=== PATIENT | female | born 1935 | race Caucasian/White ===

== ENCOUNTER 2016-08-07 08:52 | Emergency (ER) | payer MEDICARE, OTHER ==
[2016-08-07 10:07] LABS: BILIRUBIN NEGATIVE (NEGATIVE); BLOOD NEGATIVE Ery/uL (NEGATIVE); CLARITY CLEAR (CLEAR); COLOR YELLOW (YELLOW); GLUCOSE (U) NORMAL (NORMAL); KETONE (U) NEGATIVE (NEGATIVE); LEUKOCYTES NEGATIVE Leu/uL (NEGATIVE); NITRITE NEGATIVE (NEGATIVE); PROTEIN 1+ mg/dL (NEGATIVE); UROBILINOGEN 0.2 mg/dL (0.2-1.0); pH 8.5 (5.0-9.0)
[2016-08-07 10:08] LABS: BASOPHIL 0.4 % (0-2); EOSINOPHIL 2.6 % (0-7); HCT 37.1 % (37.0-47.0); HGB 11.9 g/dl (12.5-16.0); LYMPHOCYTE 16.3 % (15-48); MCH 27.8 pg (25.0-31.0); MCHC 32.1 g/dL (32.0-36.0); MCV 86.7 fL (78.0-100.0); MONOCYTE 6.8 % (0-12); MPV 10.9 fL (6.0-9.5); NEUTROPHIL 73.9 % (41-80); PLT 248 K/uL (150-400); RBC 4.28 M/uL (4.20-5.40); RDW 16.2 % (11.5-14.0); WBC 7.6 K/uL (4.0-10.5)
[2016-08-07 10:12] LABS: ALBUMIN 4.2 g/dL (3.4-4.8); BILIRUBIN - TOTAL 0.4 mg/dL (0.1-1.0); CREATININE 0.8 mg/dL (0.5-1.0); GLOBULIN (CALCULATION) 2.2 g/dL (2.2-4.2); POTASSIUM 3.8 mmol/L (3.5-5.1); TOTAL PROTEIN 6.4 g/dL (6.4-8.3)
[2016-08-07 10:20] LABS: AMORPHOUS URATES CRYSTALS TRACE; BACTERIA TRACE; URINARY RBC RARE
== END 2016-08-07 11:54 | disposition home or self-care (01) ==
LOC: FER 08:52
PROVIDERS: Emergency Medicine
DX: N20.0 Calculus of kidney (principal); E11.9 Type 2 diabetes mellitus without complications; I10 Essential (primary) hypertension; J45.909 Unspecified asthma, uncomplicated; F17.210 Nicotine dependence, cigarettes, uncomplicated; Z87.19 Personal history of other diseases of the digestive system; Z99.81 Dependence on supplemental oxygen
CPT/HCPCS: 36415; 80053; 81001; 82150; 83690; 85025; J1170; J2270

== ENCOUNTER 2016-08-08 09:01 | Emergency (ER) | payer MEDICARE ==
[2016-08-08 10:07] LABS: BASOPHIL 0.4 % (0-2); EOSINOPHIL 0.7 % (0-7); HCT 35.8 % (37.0-47.0); HGB 11.6 g/dl (12.5-16.0); LYMPHOCYTE 13.7 % (15-48); MCHC 32.4 g/dL (32.0-36.0); MCV 86.5 fL (78.0-100.0); MONOCYTE 5.7 % (0-12); MPV 10.6 fL (6.0-9.5); NEUTROPHIL 79.5 % (41-80); PLT 228 K/uL (150-400); RBC 4.14 M/uL (4.20-5.40); RDW 15.9 % (11.5-14.0); WBC 9.6 K/uL (4.0-10.5)
[2016-08-08 10:21] LABS: INR 1.06 (0.9-1.2); PROTHROMBIN TIME 13.4 SECONDS (11.7-14.0); PTT 24.1 SECONDS (23.2-31.4)
[2016-08-08 10:23] LABS: BILIRUBIN NEGATIVE (NEGATIVE); BLOOD NEGATIVE Ery/uL (NEGATIVE); COLOR YELLOW (YELLOW); GLUCOSE (U) NORMAL (NORMAL); KETONE (U) 1+ (SMALL) mg/dL (NEGATIVE); LEUKOCYTES NEGATIVE Leu/uL (NEGATIVE); NITRITE NEGATIVE (NEGATIVE); PROTEIN 2+ mg/dL (NEGATIVE); UROBILINOGEN 0.2 mg/dL (0.2-1.0); pH 8.5 (5.0-9.0)
[2016-08-08 10:24] LABS: CLARITY HAZY (CLEAR); SQUAMOUS EPITHELIAL CELLS RARE; URINARY RBC RARE; URINARY WBC RARE
[2016-08-08 10:25] LABS: AMORPHOUS URATES CRYSTALS TRACE
[2016-08-08 10:29] LABS: ALBUMIN 4.1 g/dL (3.4-4.8); BILIRUBIN - TOTAL 0.4 mg/dL (0.1-1.0); CREATININE 0.8 mg/dL (0.5-1.0); GLOBULIN (CALCULATION) 2.5 g/dL (2.2-4.2); POTASSIUM 3.7 mmol/L (3.5-5.1); TOTAL PROTEIN 6.6 g/dL (6.4-8.3)
[2016-08-08 10:31] LABS: CKMB 2.56 ng/mL (0.97-4.94); MYOGLOBIN 157 ng/mL (26-65); TROPONIN T < 0.010 ng/mL
[2016-08-08 11:35] LABS: AMPHETAMINES NEGATIVE (NEGATIVE); BARBITURATES NEGATIVE (NEGATIVE); BENZODIAZEPINES NEGATIVE (NEGATIVE); COCAINE NEGATIVE (NEGATIVE); MARIJUANA (THC) NEGATIVE (NEGATIVE); METHADONE NEGATIVE (NEGATIVE); TRICYCLIC ANTIDEPRESSANT NEGATIVE (NEGATIVE)
== END 2016-08-08 12:26 | disposition other institution (70) ==
LOC: FER 09:01
PROVIDERS: Emergency Medicine
DX: I62.9 Nontraumatic intracranial hemorrhage, unspecified (principal); R40.4 Transient alteration of awareness; R29.708 NIHSS score 8; I45.81 Long QT syndrome; I49.1 Atrial premature depolarization; I10 Essential (primary) hypertension; E11.9 Type 2 diabetes mellitus without complications; J45.909 Unspecified asthma, uncomplicated; J44.9 Chronic obstructive pulmonary disease, unspecified; F03.90 Unspecified dementia, unspecified severity, without behavioral disturbance, psychotic disturbance, mood disturbance, and anxiety; F17.210 Nicotine dependence, cigarettes, uncomplicated; Z87.19 Personal history of other diseases of the digestive system; Z88.0 Allergy status to penicillin; Z79.82 Long term (current) use of aspirin; Z79.84 Long term (current) use of oral hypoglycemic drugs; Z79.899 Other long term (current) drug therapy; Z99.81 Dependence on supplemental oxygen
CPT/HCPCS: 36415; 70450; 71010; 80053; 80061; 80305; 81001; 82550; 82553; 83874; 84484; 85025; 85379; 85610; 85730; 93005; J2060